=== PATIENT | female | born 1970 | race Caucasian/White ===

== ENCOUNTER 2022-03-20 13:56 | Emergency (ER) | payer OTHER, SELFPAY ==
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
[2022-03-20 14:10] VITALS: BP 118/63; PULSE 92; RESP 20; TEMP 36.6; O2SAT 97
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
== END 2022-03-20 15:45 | disposition home or self-care (01) ==
PROVIDERS: Emergency Provider Nurse Practitioner
DX: S20.213A Contusion of bilateral front wall of thorax, initial encounter (principal); V49.40XA Driver injured in collision with unspecified motor vehicles in traffic accident, initial encounter; S52.502A Unspecified fracture of the lower end of left radius, initial encounter for closed fracture; S62.617A Displaced fracture of proximal phalanx of left little finger, initial encounter for closed fracture; E78.00 Pure hypercholesterolemia, unspecified; I10 Essential (primary) hypertension; E11.9 Type 2 diabetes mellitus without complications
CPT/HCPCS: 29125; 71046; 73110; 73130; 99204; A4565; G0463